=== PATIENT | female | born 1985 | race Caucasian/White ===

== ENCOUNTER → 2018-04-01 | Outpatient (CLI) | payer OTHER ==
[~2018-04-01] MED LIST: ALBU90I INH; ALBU90OI INH; ALBU90OI61 INH; AZIT250 PO; BISA10S PR; Bactrim Ds Tab1 EACH PO; CARB50; CEPH500 PO; CIPRO500 MG PO; CLIN15SU PO; CLIN300 PO; CODGUAEL PO; CODGUAPSEE PO; CYCL10 PO; HYDACE5 PO; HYDGUAL120 PO; IBUP800 PO; KETO10 PO; Keflex500 MG PO; MULVITMINE PO; Mucinex600 MG PO; NITR100 PO; ONDA4 PO; Omeprazole20 M1; PERM5TC TOP; PROCODE120 PO; PROM25 PO; Percocet 5-3251 EACH PO; Pyridium200 MG PO; RANI150 PO; SULTRIDS PO; SULTRIEL PO; SUMA25 PO; Ultram50 MG PO; Verotin-Gr Cap1 EACH PO; Zofran Odt4 MG SL; [UNRECOGNIZED DRUG - OTHER]
[2018-04-04 11:06] LABS: HPV 16 Negative (Negative); HPV 18 Negative (Negative); HPV OTHER HR TYPES Negative (Negative)
== END | disposition home or self-care (01) ==
LOC: LAB 18:20 → LAB SHORT 18:20
PROVIDERS: Obstetrics & Gynecology
DX: Z12.4 Encounter for screening for malignant neoplasm of cervix (principal)
CPT/HCPCS: 87624; G0123

== ENCOUNTER 2018-06-08 21:50 | Emergency (ER) | payer OTHER ==
[~2018-06-08] VITALS: Ht 162.6 cm; Wt 58.5 kg
[~2018-06-08 21:50] MED LIST changes: +Zithromax250 MG PO
[2018-06-08] MEDS ORDERED: Cleocin HCl300 MG PO (23:56)
== END 2018-06-09 00:32 | disposition home or self-care (01) ==
LOC: ER 21:50
DX: J02.9 Acute pharyngitis, unspecified (principal); Z88.0 Allergy status to penicillin
CPT/HCPCS: 86308; 87081; 87430; 99282; J1100

== ENCOUNTER → 2018-06-10 | Outpatient (CLI) | payer OTHER ==
[~2018-06-10] MED LIST changes: +Cleocin HCl300 MG PO
[2018-06-12 04:10] LABS: CHLAMYDIA TRACHOMATIS, NAA Negative (Negative); NEISSERIA GONORRHOEAE, NAA Negative (Negative)
== END | disposition home or self-care (01) ==
LOC: LAB 15:16 → LAB SHORT 15:16
PROVIDERS: Obstetrics & Gynecology
DX: Z20.2 Contact with and (suspected) exposure to infections with a predominantly sexual mode of transmission (principal)
CPT/HCPCS: 87491; 87591

== ENCOUNTER → 2018-10-23 | Outpatient (CLI) | payer OTHER ==
[2018-10-25 23:06] LABS: CHLAMYDIA TRACHOMATIS, NAA Negative (Negative); NEISSERIA GONORRHOEAE, NAA Negative (Negative)
== END | disposition home or self-care (01) ==
LOC: LAB SHORT 16:24 → LAB 16:24
PROVIDERS: Obstetrics & Gynecology
DX: Z20.2 Contact with and (suspected) exposure to infections with a predominantly sexual mode of transmission (principal)
CPT/HCPCS: 87491; 87591

== ENCOUNTER 2019-01-04 15:01 | Emergency (ER) | payer OTHER ==
[~2019-01-04] VITALS: Ht 162.6 cm; Wt 55.3 kg
== END 2019-01-04 16:10 | disposition home or self-care (01) ==
LOC: ER 15:01
DX: S20.211A Contusion of right front wall of thorax, initial encounter (principal); S80.01XA Contusion of right knee, initial encounter; S80.812A Abrasion, left lower leg, initial encounter; Z88.1 Allergy status to other antibiotic agents; W18.39XA Other fall on same level, initial encounter
CPT/HCPCS: 71101; 90471; 90714; 99283-25

== ENCOUNTER 2019-08-30 00:38 | Observation (INO) | payer OTHER ==
[~2019-08-30] VITALS: Ht 160 cm; Wt 54.4 kg
[~2019-08-30 00:38] MED LIST changes: +ONDA4ODT SL
[2019-08-30 01:33] LABS: BASOPHILS ABSOLUTE AUTO 0.03 K/mm3 (0.00-0.23); BASOPHILS PERCENT AUTO 0 % (0-2); EOSINOPHILS ABSOLUTE AUTO 0.09 K/mm3 (0.00-0.68); EOSINOPHILS PERCENT AUTO 1 % (0-6); Hematocrit 38.3 % (33.0-51.0); Hemoglobin 12.8 g/dL (11.5-16.0); IMMATURE GRAN ABSOLUTE AUTO 0.02 K/mm3 (0.00-0.10); IMMATURE GRAN PERCENT AUTO 0 % (0-1); LYMPHOCYTES ABSOLUTE AUTO 1.87 K/mm3 (0.84-5.20); LYMPHOCYTES PERCENT AUTO 27 % (21-46); MONOCYTES ABSOLUTE AUTO 0.45 K/mm3 (0.16-1.47); MONOCYTES PERCENT AUTO 6 % (4-13); Mean Corpuscular HGB 30.5 pg (26.0-34.0); Mean Corpuscular HGB Conc 33.4 g/dL (31.5-36.5); Mean Corpuscular Volume 91 fL (80-100); Mean Platelet Volume 9.5 fL (9.1-12.4); NEUTROPHILS ABSOLUTE AUTO 4.54 K/mm3 (1.96-9.15); NEUTROPHILS PERCENT AUTO 65 % (41-73); Platelet Count 311 K/mm3 (150-400); RDW Coefficient Variation 12.4 % (11.7-14.2); Red Blood Cell Count 4.19 M/mm3 (3.80-5.20)
[2019-08-30 01:48] LABS: Source, Urine Clean Catch
[2019-08-30 01:50] LABS: Bilirubin, Urine Neg (Neg); Blood, Urine Neg (Neg); Glucose Qualitative, Urine Neg (Neg); Ketones, Urine Neg (Neg); Leukocyte Esterase, Urine 2+ (Neg); Nitrite, Urine Neg (Neg); Protein, Urine Neg (Neg); Specific Gravity, Urine 1.015 (1.003-1.022); Urobilinogen, Urine NORM (Normal)
[2019-08-30 01:52] LABS: Acetaminophen, Random <2.0 ug/mL (10.0-30.0); Alanine Aminotransfer (ALT/SGP 15 U/L (12-78); Albumin, Blood 3.5 g/dL (3.4-5.0); Alk Phos 70 U/L (50-136); Anion Gap 7 mmol/L (6-16); Aspartate Aminotrans (AST/SGOT 13 U/L (12-37); Bilirubin, Total 0.3 mg/dL (0.1-1.0); Blood Urea Nitrogen 8 mg/dL (8-24); Bun/Creatinine Ratio 11.2 (12.0-20.0); CO2, Blood 26 mmol/L (21-32); Calcium, Blood 8.2 mg/dL (8.5-10.1); Chloride, Blood 111 mmol/L (98-108); Creatinine, Blood 0.72 mg/dL (0.40-1.00); Ethanol (Alcohol), Blood, Med 167 mg/dL; Globulin, Blood 3.5 g/dL (2.2-4.0); Glomerular Filtration Rate >60 (60-); Glucose, Blood 108 mg/dL (70-99); Potassium, Blood 3.5 mmol/L (3.5-5.5); Salicylate <1.7 mg/dL (2.8-20.0); Sodium, Blood 144 mmol/L (136-145)
[2019-08-30 02:05] LABS: U Amphetamine Screen Not Detected; U Barbituate Screen Not Detected; U Benzodiazapine Screen Not Detected; U Buprenorphine Screen Not Detected; U Cannabinoids Screen Not Detected; U Cocaine Screen Not Detected; U Methadone Screen Not Detected; U Methamphetamine Screen Not Detected; U Opiates Screen Not Detected; U Oxycodone Screen Not Detected; U Phencyclidine Screen Not Detected; U Propoxyphene Screen Not Detected
[2019-08-30 02:07] LABS: Appearance, Urine Hazy (Clear); Bacteria Mod /hpf; Color, Urine Yellow (P-Yellow); Red Blood Cells, Urine Not Seen /hpf (0-2); Squamous Epithelial Cells Mod /hpf (Few)
== END 2019-08-30 10:07 | disposition home or self-care (01) ==
LOC: ER 00:38 → EOR 00:39
PROVIDERS: ADMIT Emergency Medicine
DX: F32.9 Major depressive disorder, single episode, unspecified (principal); F10.129 Alcohol abuse with intoxication, unspecified; Z88.0 Allergy status to penicillin; Y90.6 Blood alcohol level of 120-199 mg/100 ml; S61.512A Laceration without foreign body of left wrist, initial encounter; W45.8XXA Other foreign body or object entering through skin, initial encounter
CPT/HCPCS: 80053; 81001; 81025; 85025; 87086; 99285; G0378; G0480

== ENCOUNTER 2020-09-29 02:38 | Emergency (ER) | payer OTHER ==
[~2020-09-29] VITALS: Ht 160 cm; Wt 62.1 kg
== END 2020-09-29 06:18 | disposition home or self-care (01) ==
LOC: ER 02:38
DX: J02.9 Acute pharyngitis, unspecified (principal); Z88.0 Allergy status to penicillin
CPT/HCPCS: 87081; 87430; 99283; J1100

== ENCOUNTER 2022-04-10 02:32 | Emergency (ER) | payer OTHER ==
[~2022-04-10] VITALS: Ht 160 cm; Wt 61.2 kg
[2022-04-10] MEDS ORDERED: Protonix40 MG PO (03:44)
== END 2022-04-10 04:02 | disposition home or self-care (01) ==
LOC: ER 02:32
DX: K21.9 Gastro-esophageal reflux disease without esophagitis (principal); R10.13 Epigastric pain; Z88.0 Allergy status to penicillin
CPT/HCPCS: 93005; 93010; 99283-25; A9270

== ENCOUNTER 2022-07-09 21:19 | Emergency (ER) | payer OTHER ==
[~2022-07-09] VITALS: Ht 162.6 cm; Wt 62.1 kg
[~2022-07-09 21:19] MED LIST changes: +Protonix40 MG PO
[2022-07-09 21:58] VITALS: BP 133/90
== END 2022-07-10 00:35 | disposition home or self-care (01) ==
LOC: ER 21:19
DX: K21.9 Gastro-esophageal reflux disease without esophagitis (principal); Z88.0 Allergy status to penicillin
CPT/HCPCS: 93005; 93010; 99283-25; A9270

== ENCOUNTER 2023-11-17 15:00 | Emergency (ER) | payer OTHER ==
[~2023-11-17] VITALS: Ht 162.6 cm; Wt 61.7 kg
[~2023-11-17 15:00] MED LIST changes: +ONDA4ODT MM; +Prednisone20 MG PO
[2023-11-17 15:04] VITALS: BP 120/81
[2023-11-17] MEDS ORDERED: Lidocaine 2% Viscous Soln 15 ML UDC PO ONE (15:35)
[2023-11-17] MEDS ORDERED: Ibuprofen 600 MG Tab PO ONE (15:35)
== END 2023-11-17 15:50 | disposition home or self-care (01) ==
LOC: ER 15:00
DX: J02.9 Acute pharyngitis, unspecified (principal); Z88.0 Allergy status to penicillin
CPT/HCPCS: 87081; 87430; 99283; A9270

== ENCOUNTER 2024-03-06 16:10 | Observation (INO) | payer OTHER ==
[~2024-03-06] VITALS: Ht 162.6 cm; Wt 61.5 kg
[2024-03-06 16:39] LABS: BASOPHILS ABSOLUTE AUTO 0.03 K/mm3 (0.00-0.23); BASOPHILS PERCENT AUTO 0 % (0-2); EOSINOPHILS ABSOLUTE AUTO 0.07 K/mm3 (0.00-0.68); EOSINOPHILS PERCENT AUTO 1 % (0-6); Hematocrit 43.4 % (33.0-51.0); IMMATURE GRAN ABSOLUTE AUTO 0.02 K/mm3 (0.00-0.10); IMMATURE GRAN PERCENT AUTO 0 % (0-1); LYMPHOCYTES PERCENT AUTO 26 % (21-46); MONOCYTES ABSOLUTE AUTO 0.52 K/mm3 (0.16-1.47); MONOCYTES PERCENT AUTO 7 % (4-13); Mean Corpuscular HGB 30.5 pg (26.0-34.0); Mean Corpuscular HGB Conc 34.6 g/dL (31.5-36.5); Mean Corpuscular Volume 88 fL (80-100); Mean Platelet Volume 8.9 fL (9.1-12.4); NEUTROPHILS ABSOLUTE AUTO 4.77 K/mm3 (1.96-9.15); NEUTROPHILS PERCENT AUTO 65 % (41-73); Platelet Count 369 K/mm3 (150-400); RDW Coefficient Variation 12.4 % (11.7-14.2); RDW Standard Deviation 40.4 fL (35.1-46.3); Red Blood Cell Count 4.91 M/mm3 (3.80-5.20); White Blood Cell Count 7.31 K/mm3 (4.00-11.30)
[2024-03-06 17:04] LABS: Albumin, Blood 3.7 g/dL (3.4-5.0); Albumin/Globulin Ratio 0.9 (0.8-1.8); Bilirubin, Total 0.4 mg/dL (0.1-1.0); Bun/Creatinine Ratio 15.4 (12.0-20.0); Calcium, Blood 9.2 mg/dL (8.5-10.1); Creatinine, Blood 0.72 mg/dL (0.40-1.00); Globulin, Blood 3.9 g/dL (2.2-4.0); Potassium, Blood 3.6 mmol/L (3.5-5.5); Total Protein, Blood 7.6 g/dL (6.4-8.2)
[2024-03-06 19:09] LABS: Source, Urine Clean Catch
[2024-03-06 19:12] LABS: Appearance, Urine Clear (Clear); Bilirubin, Urine Neg (Neg); Blood, Urine Neg (Neg); Color, Urine Yellow (P-Yellow); Glucose Qualitative, Urine Neg (Neg); Ketones, Urine Neg (Neg); Leukocyte Esterase, Urine 2+ (Neg); Nitrite, Urine Neg (Neg); Protein, Urine Neg (Neg); Specific Gravity, Urine 1.025 (1.003-1.022); Urobilinogen, Urine NORM (Normal)
[2024-03-06 19:19] LABS: Amorphous Light (0-Heavy); Bacteria Few /hpf; Calcium Oxalate Crystals Rare /hpf; Mucus Light (0-Heavy); Red Blood Cells, Urine 0-2 /hpf (0-2); Squamous Epithelial Cells Few /hpf (Few)
[2024-03-06] MEDS ORDERED: Dicyclomine HCl 20 MG Tab PO ONE (19:55)
[2024-03-06] MEDS ORDERED: Ketorolac Tromethamine 15mg Vial IV ONE (19:55)
[2024-03-06] MEDS ORDERED: LEVONOR-ETH ES1 EAC5 PO (20:20)
[2024-03-06] MEDS ORDERED: Ciprofloxacin 400MG/D5 200ML 200 ML IV ONE (22:10)
[2024-03-06] MEDS ORDERED: MetroNIDAZOLE 500MG/NS 100 ml 100 ML IV ONE (22:10)
[2024-03-06] MEDS ORDERED: Ondansetron HCl 2 MG / ML 2ML Vial IV PRN (22:35)
[2024-03-06] MEDS ORDERED: NS 1,000 ML IV SCH (22:35)
[2024-03-06] MEDS ORDERED: HYDROmorphone HCl/Pf 1MG SYR IV PRN (22:35)
[2024-03-06] MEDS ORDERED: NS 1,000 ML IV ONE (23:52)
[2024-03-07] VITALS (20 sets, daily range): BP systolic 103–126; BP diastolic 46–81
--- NOTE | 2024-03-07 05:13 | NUR ---
SHIFT SUMMARY PT ARRIVED FROM ED APPROX 0032. ADMITTING DX CHOLECY STITIS. RI HERE FOR OBS AND SURGICAL. PT HAD PAIN MEDICATIONS BEFORE BEING TRANSFERED FROM ED. PT HAS BEEN PLEASANT AND COOPERATIVE WITH CARE.
[2024-03-07] MEDS ORDERED: Bupivacaine 0.5% HCl 5 MG/ML 30MLVIAL ONE (08:38)
[2024-03-07] MEDS ORDERED: Rocuronium Bromide 10 MG/ML 5ML Injection IV ONE (09:05)
[2024-03-07] MEDS ORDERED: propofoL 20 ML IV ONE (09:05)
[2024-03-07] MEDS ORDERED: Midazolam HCl 1MG / ML 2ML Vial ONE (09:06)
[2024-03-07] MEDS ORDERED: FentaNYL Citrate 50 MCG/ML 2 ML Injection ONE ×3 (09:06→10:58)
[2024-03-07] MEDS ORDERED: MetroNIDAZOLE 500MG/NS 100 ml 100 ML IV SCH (09:32)
[2024-03-07] MEDS ORDERED: Metoprolol Tartrate 5 ML IV ONE (09:37)
[2024-03-07] MEDS ORDERED: HYDROmorphone HCl/Pf 1MG SYR ONE (09:43)
[2024-03-07] MEDS ORDERED: Ciprofloxacin 400MG/D5 200ML 200 ML IV SCH (10:00)
[2024-03-07] MEDS ORDERED: Ondansetron HCl 2 MG / ML 2ML Vial IV PRN (10:05)
[2024-03-07] MEDS ORDERED: HYDROmorphone HCl/Pf 1MG SYR IV PRN ×2 (10:05)
[2024-03-07] MEDS ORDERED: Atropine Sulfate 0.1 MG/ML 10ML SYR IV PRN (10:05)
[2024-03-07] MEDS ORDERED: Albuterol 2.5 MG/3 ML VIAL INH PRN (10:05)
[2024-03-07] MEDS ORDERED: FentaNYL Citrate 50 MCG/ML 2 ML Injection IV PRN ×2 (10:05)
[2024-03-07] MEDS ORDERED: Sugammadex Sodium 200 MG/2ML SDV (100 MG/ML) ONE (10:22)
[2024-03-07] MEDS ORDERED: FLU VACC TS2024-25(6MOS UP)/PF 45 MCG/0.5 ML SYRINGE IM SCH (10:45)
[2024-03-07] MEDS ORDERED: HYDROcodone 5-APAP 325 TAB PO PRN (10:45)
--- NOTE | 2024-03-07 11:52 | NUR ---
1140 RETURNED TO ROOM FROM PACU. PT STOOD TO TRANSFER TO BED. REPORTS N AUSEA WITH MOVEMENT, ZOFRAN GIVEN. ABD SITES X4 COVERED WITH GAUZE ALL SITES DRY AND INTACT. PT REPORTS ABD PAIN 5-6 WITH MOVEMENT. CLEAR LIQUIDS AND CRACKERS GIVEN TO PATIENT
[2024-03-07] MEDS ORDERED: Ketorolac Tromethamine 30mg Vial IV PRN (11:55)
--- NOTE | 2024-03-07 18:00 | NUR ---
SHIFT SUMMARY PATIENT A/OX4. UNDERWENT LAPROSCOPIC CHOLECYSTECTOMY THIS SHIFT. 4 TROCH SITES TO ABD, COVERED WITH NON ADHERANT DRESSING AND TEGADERM, MINIMAL DRAINAGE TO MOST CEPHALIC SITE, SEROSANGUINOUS. C/O ABD PAIN AND NAUSEA, MEDICATED PER MAR. ENCOURAGED AMBULATION IN HALLWAY, TOLERATING WELL. RECEIVING IV ABX. VOIDING WELL POST OP, VSS AND WNL. ABLE TO MAKE NEEDS KNOWN. CALL LIGHT IN REACH, CARES ONGOING.
[2024-03-07] MEDS ORDERED: Famotidine 20 MG Tab PO SCH (21:00)
[2024-03-08 01:23] VITALS: BP 104/58
--- NOTE | 2024-03-08 02:12 | NUR ---
ASSUMPTION OF CARE ASSUMED CARE OF PT AT 1900,THERESE REPORT COMPLETED WITH PREVIOUS NURSE.SURGICAL LAP SITES ASSESSED.NOTED SCANT AMOUNT OF BLOOD ON THE MID UPPER AND RIGHT UPPER ABDOMINAL DRESSINGS.PT REPORTED SCANT AMOUNT OF VAGINAL BLEEDING.PT C/O NAUSEA,WILL ADMINISTER PRN ZOFRAN.PT DENIES PAIN,DENIES NEEDS.PT SPLINTTING ABDOMEN WITH PILLOW.PLAN OF CARE REVIEWED.CALL LIGHT AND PT ITEMS WITHIN REACH.WILL CONTINUE TO MONITOR.
[2024-03-08 04:17] VITALS: BP 108/73
--- NOTE | 2024-03-08 06:28 | NUR ---
PT SLEPT MOST OF THE NIGHT,PRN PAIN MEDS GIVEN PER PT'S REQUEST.NAUSEA RELIEVED BY ZOFRAN.TOLERATED AMBULATION TO THE BATHROOM WITH SBA.PT DENIES PAIN,DENIES NEEDS AT THIS TIME.CALL LIGHT AND PT'S ITEMS WITHIN REACH.WILL REPORT TO INCOMING NURSE.
[2024-03-08 07:44] VITALS: BP 112/76
[2024-03-08] MEDS ORDERED: HYDR1TAB94 PO (10:05)
--- NOTE | 2024-03-08 12:56 | NUR ---
DISCHARGE SUMMARY PATIENT DISCHARGED TODAY, IV REMOVED WITHOUT COMPLICATION. DRESSINGS REMAIN INTACT, PATIENT DECLINED TO ALLOW RN TO REMOVE PRIOR TO DISCHARGE, STATED SHE WANTED TO LET THE SHOWER LOOSEN THE DRESSING TO DECREASE PAIN. WAS OFFERED TO SHOWER HERE, DECLINED. DISCHARGE PACKET GIVEN AND REVIEWED, QUESTIONS ANSWERED, VERBALIZED UNERSTANDING. HARD SCRIPT FOR NORCO SENT WITH PATIENT. VOIDING WELL, NO BM TODAY, ACTIVE BOWEL TONES.
== END 2024-03-08 11:43 | disposition home or self-care (01) ==
LOC: ER 16:10 → MEDS 16:11 → ERHOLD 16:11 → MEDS 03-07 00:37
PROVIDERS: Student in an Organized Health Care Education/Training Program; ADMIT Surgery
PROC: 0FT44ZZ Resection of Gallbladder, Percutaneous Endoscopic Approach (ICD-10-PCS; principal; 2024-03-07 09:30)
DX: K80.12 Calculus of gallbladder with acute and chronic cholecystitis without obstruction (principal); Z88.1 Allergy status to other antibiotic agents
CPT/HCPCS: 74177; 76705; 76830; 76856; 80053; 81001; 81025; 83690; 84703; 85025; 87086; 88304; 96365; 96367; 96374; 96375; 99285-25; A9270; C1729; G0378; J0744; J1171; J1885; J2250; J2405; J2704; J3010; J7030; Q9967

== ENCOUNTER 2024-03-16 22:23 | Observation (INO) | payer OTHER ==
[~2024-03-16] VITALS: Ht 162.6 cm; Wt 61.0 kg
[~2024-03-16 22:23] MED LIST changes: +HYDR1TAB94 PO; +LEVONOR-ETH ES1 EAC5 PO
[2024-03-16] MEDS ORDERED: HYDROcodone 5-APAP 325 TAB PO ONE (22:50)
[2024-03-16] MEDS ORDERED: Ondansetron HCl 2 MG / ML 2ML Vial IV ONE (23:05)
[2024-03-16 23:13] LABS: BASOPHILS ABSOLUTE AUTO 0.04 K/mm3 (0.00-0.23); BASOPHILS PERCENT AUTO 0 % (0-2); EOSINOPHILS ABSOLUTE AUTO 0.11 K/mm3 (0.00-0.68); EOSINOPHILS PERCENT AUTO 1 % (0-6); Hematocrit 37.9 % (33.0-51.0); Hemoglobin 13.4 g/dL (11.5-16.0); IMMATURE GRAN ABSOLUTE AUTO 0.04 K/mm3 (0.00-0.10); IMMATURE GRAN PERCENT AUTO 0 % (0-1); LYMPHOCYTES ABSOLUTE AUTO 1.85 K/mm3 (0.84-5.20); LYMPHOCYTES PERCENT AUTO 15 % (21-46); MONOCYTES ABSOLUTE AUTO 1.02 K/mm3 (0.16-1.47); MONOCYTES PERCENT AUTO 8 % (4-13); Mean Corpuscular HGB Conc 35.4 g/dL (31.5-36.5); Mean Corpuscular Volume 88 fL (80-100); Mean Platelet Volume 9.2 fL (9.1-12.4); NEUTROPHILS ABSOLUTE AUTO 9.68 K/mm3 (1.96-9.15); NEUTROPHILS PERCENT AUTO 76 % (41-73); Platelet Count 369 K/mm3 (150-400); RDW Standard Deviation 39.1 fL (35.1-46.3); Red Blood Cell Count 4.32 M/mm3 (3.80-5.20); White Blood Cell Count 12.74 K/mm3 (4.00-11.30)
[2024-03-16 23:32] LABS: Albumin, Blood 3.7 g/dL (3.4-5.0); Albumin/Globulin Ratio 0.9 (0.8-1.8); Bilirubin, Total 1.1 mg/dL (0.1-1.0); Bun/Creatinine Ratio 20.5 (12.0-20.0); Calcium, Blood 9.1 mg/dL (8.5-10.1); Creatinine, Blood 0.68 mg/dL (0.40-1.00); Globulin, Blood 3.9 g/dL (2.2-4.0); Potassium, Blood 3.9 mmol/L (3.5-5.5); Total Protein, Blood 7.6 g/dL (6.4-8.2)
[2024-03-17] MEDS ORDERED: Cyclobenzaprine HCl 10 MG Tab PO ONE (01:20)
[2024-03-17] MEDS ORDERED: Ondansetron HCl 2 MG / ML 2ML Vial IV PRN (01:45)
[2024-03-17] MEDS ORDERED: FLU VACC TS2024-25(6MOS UP)/PF 45 MCG/0.5 ML SYRINGE IM ONE (01:45)
[2024-03-17] MEDS ORDERED: Acetaminophen 325 MG TABLET PO PRN (01:45)
[2024-03-17] MEDS ORDERED: Heparin Sodium 5000 Units/ML 1ML MDV IV ONE (01:55)
[2024-03-17] MEDS ORDERED: Heparin Sodium,Porcine/0.5 NS 500 ML IV SCH (01:55)
[2024-03-17 02:13] LABS: Anti-Xa UFH, PHA Monitoring <0.10 IU/mL; International Normalized Ratio 1.01; Prothrombin Time Results 10.8 Sec (9.7-11.5)
[2024-03-17] MEDS ORDERED: TiZANidine HCl 4 MG Tab PO PRN (04:40)
[2024-03-17 05:59] LABS: BASOPHILS ABSOLUTE AUTO 0.04 K/mm3 (0.00-0.23); BASOPHILS PERCENT AUTO 0 % (0-2); EOSINOPHILS ABSOLUTE AUTO 0.04 K/mm3 (0.00-0.68); EOSINOPHILS PERCENT AUTO 0 % (0-6); Hemoglobin 12.6 g/dL (11.5-16.0); IMMATURE GRAN ABSOLUTE AUTO 0.03 K/mm3 (0.00-0.10); IMMATURE GRAN PERCENT AUTO 0 % (0-1); LYMPHOCYTES ABSOLUTE AUTO 1.69 K/mm3 (0.84-5.20); LYMPHOCYTES PERCENT AUTO 17 % (21-46); MONOCYTES PERCENT AUTO 7 % (4-13); Mean Corpuscular HGB 30.8 pg (26.0-34.0); Mean Corpuscular Volume 88 fL (80-100); Mean Platelet Volume 9.2 fL (9.1-12.4); NEUTROPHILS ABSOLUTE AUTO 7.35 K/mm3 (1.96-9.15); NEUTROPHILS PERCENT AUTO 75 % (41-73); Platelet Count 312 K/mm3 (150-400); RDW Coefficient Variation 12.2 % (11.7-14.2); RDW Standard Deviation 39.2 fL (35.1-46.3); Red Blood Cell Count 4.09 M/mm3 (3.80-5.20); White Blood Cell Count 9.85 K/mm3 (4.00-11.30)
[2024-03-17 06:22] LABS: Albumin, Blood 3.5 g/dL (3.4-5.0); Bilirubin, Total 1.5 mg/dL (0.1-1.0); Bun/Creatinine Ratio 20.2 (12.0-20.0); Calcium, Blood 8.8 mg/dL (8.5-10.1); Creatinine, Blood 0.74 mg/dL (0.40-1.00); Globulin, Blood 3.6 g/dL (2.2-4.0); Potassium, Blood 4.2 mmol/L (3.5-5.5); Total Protein, Blood 7.1 g/dL (6.4-8.2)
[2024-03-17 09:31] VITALS: BP 85/58
[2024-03-17] MEDS ORDERED: HYDROcodone 5-APAP 325 TAB PO PRN ×2 (09:40→13:50)
[2024-03-17] MEDS ORDERED: NS 500 ML IV SCH (12:00)
[2024-03-17 12:34] VITALS: BP 104/66
[2024-03-17] MEDS ORDERED: Ketorolac Tromethamine 15mg Vial IV PRN (13:55)
[2024-03-17] MEDS ORDERED: Apixaban 5 MG Tab PO ONE (16:00)
[2024-03-17] MEDS ORDERED: ACET325 PO (16:30)
[2024-03-17] MEDS ORDERED: ELIQUIS5 M2 PO (16:31)
[2024-03-17] MEDS ORDERED: TRAM50 PO (16:34)
--- NOTE | 2024-03-17 16:51 | NUR ---
DISCHARGE PT AOX4, COOPERATIVE, ABLE TO MAKE NEEDS KNOWN. PT SENT HOME TO TAKE BLOOD THINNER. THIS RN INSTRUCTED PT HOW TO USE INCENTIVE SPIROMETER AND TO UTILIZE AT LEAST 4 TIMES EVERY HOUSE AT HOME. PT DAUGHTER CAME TO SEROLOGIST PT. CARDIO CLINICIAN DC'D IV AND TRANFERRED VIA WHEELCHAIR DOWN TO PT ENTRANCE. NEW MEDS FAXED TO PHARM, HARD SCRIPT FOR TRAMADOL WAS IN DISCHARGE PACKET CARRIED BY PT. THIS RN INSTRUCTED PT ON BLOOD THINNER REGIMEN. BELONGINGS CARRIED BY PT FAMILY MEMBER.
== END 2024-03-17 16:50 | disposition home or self-care (01) ==
LOC: ER 22:23 → ERHOLD 22:24 → MEDS 22:24
PROVIDERS: Student in an Organized Health Care Education/Training Program; ADMIT Student in an Organized Health Care Education/Training Program
DX: I26.99 Other pulmonary embolism without acute cor pulmonale (principal); I26.93 Single subsegmental thrombotic pulmonary embolism without acute cor pulmonale; I36.1 Nonrheumatic tricuspid (valve) insufficiency; Z88.0 Allergy status to penicillin; Z90.49 Acquired absence of other specified parts of digestive tract
CPT/HCPCS: 36415; 71046; 71260; 80053; 83690; 83735; 83880; 84484; 85025; 85379; 85520; 85610; 85730; 93005; 93010; 93306; 96361; 96365; 96366; 96375; 96375-59; 99285-25; A9270; G0378; J1644; J1885; J2405; J7040; Q9967

== ENCOUNTER 2025-01-13 08:04 | Emergency (ER) | payer OTHER ==
[~2025-01-13] VITALS: Ht 162.6 cm; Wt 61.2 kg
[~2025-01-13 08:04] MED LIST changes: +ACET325 PO; +ELIQUIS5 M2 PO; +TRAM50 PO
[2025-01-13 08:35] VITALS: BP 131/91
[2025-01-13] MEDS ORDERED: Dexamethasone Sod Phos 10 MG/ML 1ML VIAL PO ONE (08:55)
[2025-01-13] MEDS ORDERED: Norethindrone0.35 MG PO (09:03)
[2025-01-13] MEDS ORDERED: CLIN300 PO (09:07)
== END 2025-01-13 09:10 | disposition home or self-care (01) ==
LOC: ER 08:04
DX: J02.9 Acute pharyngitis, unspecified (principal); Z79.899 Other long term (current) drug therapy; Z88.0 Allergy status to penicillin
CPT/HCPCS: 87430; 99283; J1100